=== PATIENT | male | born 1965 | race Caucasian/White ===

== ENCOUNTER 2023-06-19 11:25 | Outpatient (OUT) | payer OTHER, SELFPAY ==
[2023-06-19 12:02] LABS: Basophils Absolute Auto 0.1 10^3/uL (0.0-0.1); Basophils Percent Auto 0.5 % (0.2-2.0); Eosinophils Absolute Auto 0.2 10^3/uL (0.0-0.7); Eosinophils Percent Auto 1.8 % (0.9-7.0); Hematocrit 44.1 % (42.0-54.0); Hemoglobin 14.4 g/dL (14.0-18.0); Immature Granulocytes Abs Auto 0.05 10^3/uL (0.00-0.03); Immature Granulocytes Pct Auto 0.5 % (0.0-0.5); Lymphocytes Absolute Auto 2.3 10^3/uL (1.2-3.8); Lymphocytes Percent Auto 23.2 % (20.5-60.0); Mean Corpuscular HGB Conc 32.7 g/dL (29.9-35.2); Mean Corpuscular Hemoglobin 29.9 pg (25.9-34.0); Mean Corpuscular Volume 91.7 fL (80.0-94.0); Mean Platelet Volume 10.8 fL (9.5-13.5); Monocytes Absolute Auto 0.8 10^3/uL (0.3-0.8); Monocytes Percent Auto 7.8 % (1.7-12.0); Neutrophils Absolute Auto 6.5 10^3/uL (1.4-6.5); Neutrophils Percent Auto 66.2 % (43.0-75.0); Platelet Count 257 10^3/uL (150-450); Red Blood Count 4.81 10^6/uL (4.70-6.10); Red Cell Distribution Width 13.8 % (11.0-15.0); White Blood Count 9.8 10^3/uL (4.0-11.0)
[2023-06-19 12:10] LABS: Estimated Average Glucose 128 mg/dL; Glycohemoglobin A1C 6.1 % (4.5-6.2)
[2023-06-19 13:20] LABS: Anion Gap 10.3; BUN Creatinine Ratio 15.3; Bilirubin Total 0.5 mg/dL (0.2-1.0); Calcium 8.9 mg/dL (8.5-10.1); Carbon Dioxide 28.7 mmol/L (21.0-32.0); Chloride 103 mmol/L (98-107); Estimated GFR (African America >60 (>=60); Estimated GFR (Non-African Ame >60 (>=60); Glucose 120 mg/dL (74-106); Sodium 138 mmol/L (136-145)
[2023-06-19 13:21] LABS: Alanine Aminotransferase 35 U/L (16-63); Albumin Level 3.6 g/dL (3.4-5.0); Alkaline Phosphatase 86 U/L (46-116); Aspartate Amino Transferase 13 U/L (15-37); Cholesterol 173 mg/dL (<=200); Globulin 3.5 g/dL; Total Protein 7.1 g/dL (6.4-8.2); Triglycerides 65 mg/dL (<=150)
[2023-06-19 13:22] LABS: Chol HDL Ratio 3.7; Free T3 2.84 pg/mL (2.18-3.98); HDL Cholesterol 47 mg/dL (40-60); Thyroid Stimulating Hormone 0.353 uIU/mL (0.358-3.740)
[2023-06-19 13:37] LABS: Prostate Specific Antigen Scrn 3.49 ng/mL (<=4.00)
== END 2023-06-19 11:26 | disposition home or self-care (01) ==
LOC: LAB 11:29
PROVIDERS: PCP Family Medicine; Visit Provider Family Medicine
DX: Z00.00 Encounter for general adult medical examination without abnormal findings (principal); E78.5 Hyperlipidemia, unspecified; R73.09 Other abnormal glucose; Z12.5 Encounter for screening for malignant neoplasm of prostate; E55.9 Vitamin D deficiency, unspecified
CPT/HCPCS: 36415; 80053; 80061; 82306; 83036; 83525; 84436; 84443; 84481; 85025; G0103

== ENCOUNTER 2024-06-27 08:16 | Outpatient (OUT) | payer OTHER, SELFPAY ==
--- OUTSIDE RECORDS SUMMARY | 2024-06-27 08:18 | XMS_ITS | CCD ---
Author Organization [facility] Team Providers Care Manager Night Name Role Phone DR SARAY CALIX Attending Unavailable DR SARAY CALIX Admitting Unavailable DR SARAY CALIX Primary Care Unavailable DR SARAY CALIX Consulting Unavailable DR SARAY CALIX Admitting Unavailable DR SARAY CALIX Primary Care Unavailable DR SARAY CALIX Consulting Unavailable DR SARAY CALIX Attending Unavailable Problems Problem Classification Problem Date Documented Da te Episodic/Chronic Other screening for suspected conditions (not mental disorders or infectious disease) (1 source) Encounter for screening for malignant neoplasm of prostate; Translations: [ENC SCREEN MALIG NEOPLASM PROSTATE] Onset: 06-21-2022 Episodic Results Test Name Value Interpretation Reference Range Facil ity INSULINon 06-19-2022 Insulin 14.5 uIU/mL Normal 2.6-24.9 [facility] Comment on above: Performed By: #### I NSULIN #### [facility] [address] [place] [address] Dr. Lorri Thapa CBC AUTO DIFFon 06-18-2022 BASO # 0.1 103/ul Normal 0.0-0.1 [facility] Comment on above: Performed By: #### C BC #### [facility] [address] [place] [address] Dr. Lorri Thapa Basophils/100 WBC (Bld) 0.6 % Normal 0.2-2.0 [facility] Comment on above: Performed By: #### C BC #### [facility] [address] [place] [address] Dr. Lorri Thapa EO # 0.3 103/ul Normal 0.0-0.7 [facility] Comment on above: Performed By: #### C BC #### [facility] [address] [place] [address] Dr. Lorri Thapa Eosinophils/100 WBC (Bld) 4.2 % Normal 0.9-7.0 [facility] Comment on above: Performed By: #### C BC #### [facility] [address] [place] [address] Dr. Lorri Thapa Erythrocyte distribution width (RBC) [Ratio] 15.2 % Critically high 11.0-15.0 [facility] Comment on above: Performed By: #### C BC #### [facility] [address] [place] [address] Dr. Lorri Thapa Hematocrit (Bld) [Volume fraction] 42.3 % Normal 42.0-54.0 [facility] Comment on above: Performed By: #### C BC #### [facility] [address] [place] [address] Dr. Lorri Thapa Hemoglobin (Bld) [Mass/Vol] 14.1 g/dL Normal 14.0-18.0 [facility] Comment on above: Performed By: #### C BC #### [facility] [address] [place] [address] Dr. Lorri Thapa IG # 0.03 10e3/ul Normal 0.00-0.03 [facility] Comment on above: Performed By: #### C BC #### [facility] [address] [place] [address] Dr. Lorri Thapa IG % 0.4 % Normal 0.0-0.5 [facility] Comment on above: Performed By: #### C BC #### [facility] [address] [place] [address] Dr. Lorri Thapa LYMPH # 2.4 103/ul Normal 1.2-3.8 [facility] Comment on above: Performed By: #### C BC #### [facility] [address] [place] [address] Dr. Lorri Thapa Lymphocytes/100 WBC (Bld) 30.9 % Normal 20.5-60.0 [facility] Comment on above: Performed By: #### C BC #### [facility] [address] [place] [address] Dr. Lorri Thapa MANUAL DIFF REQ NO Normal [facility] Comment on above: Performed By: #### C BC #### [facility] [address] [address] [address] Lorri Thapa MCH (RBC) [Entitic mass] 28.6 pg Normal 25.9-34.0 [facility] Comment on above: Performed By: #### C BC #### [facility] [address] [address] [address] Lorri Thapa MCHC (RBC) [Mass/Vol] 33.3 g/dL Normal 29.9-35.2 [facility] Comment on above: Performed By: #### C BC #### [facility] [address] [place] [address] Dr. Lorri Thapa MCV (RBC) [Entitic vol] 85.8 fL Normal 80.0-94.0 [facility] Comment on above: Performed By: #### C BC #### [facility] [address] [place] [address] Dr. Lorri Thapa MONO # 0.8 103/ul Normal 0.3-0.8 [facility] Comment on above: Performed By: #### C BC #### [facility] [address] [place] [address] Dr. Lorri Thapa Monocytes/100 WBC (Bld) 9.6 % Normal 1.7-12.0 [facility] Comment on above: Performed By: #### C BC #### [facility] [address] [place] [address] Dr. Lorri Thapa NEUT # 4.3 103/ul Normal 1.4-6.5 [facility] Comment on above: Performed By: #### C BC #### [facility] [address] [place] [address] Dr. Lorri Thapa Neutrophils/100 WBC (Bld) 54.3 % Normal 43.0-75.0 [facility] Comment on above: Performed By: #### C BC #### [facility] [address] [place] [address] Dr. Lorri Thapa Platelet mean volume (Bld) [Entitic vol] 10.1 fL Normal 9.5-13.5 [facility] Comment on above: Performed By: #### C BC #### [facility] [address] [address] [address] Lorri Thapa PLT 236 103/ul Normal 150-450 [facility] Comment on above: Performed By: #### C BC #### [facility] [address] [address] [address] Lorri Thapa RBC 4.93 106/ul Normal 4.70-6.10 [facility] Comment on above: Performed By: #### C BC #### [facility] [address] [address] [address] Lorri Thapa WBC 7.9 103/ul Normal 4.0-11.0 [facility] Comment on above: Performed By: #### C BC #### [facility] [address] [place] [address] Dr. Lorri Thapa GLYCOHEMOGLOBIN A1Con 2021 ADA RECOMMENDATION SEE BELOW Normal [facility] Comment on above: Result Comment: ADA RECOMMENDED LIMIT 4.0 - 6.0 ADA THERAPEUTIC TARGET < 7.0 ACTION SUGGESTED > 7.0 Performed By: #### A 1C #### [facility] [address] [place] [address] Dr. Lorri Thapa Glucose [Mass/Vol] 131 mg/dL Normal [facility] Comment on above: Performed By: #### A 1C #### [facility] [address] [place] [address] Dr. Lorri Thapa HbA1c (Bld) [Mass fraction] 6.2 % Normal 4.5-6.2 [facility] Comment on above: Performed By: #### A 1C #### [facility] [address] [place] [address] Dr. Lorri Thapa LIPID PROFILEon 06-18-2022 CHOL-HDL RATIO NORM SEE BELOW Normal [facility] Comment on above: Result Comment: 3.3 - 4.4 LOW RISK 4.4 - 7.1 AVERAGE RISK 7.1 - 11.0 MODERATE RISK >11.0 HIGH RISK Performed By: #### C MP, LIPID #### [facility] [address] [address] [address] Lorri Thapa Cholesterol [Mass/Vol] 154 mg/dL Normal <=200 [facility] Comment on above: Performed By: #### C MP, LIPID #### [facility] [address] [address] [address] Lorri Thapa Cholesterol in HDL [Mass/Vol] 46 mg/dL Normal 40-60 [facility] Comment on above: Performed By: #### C MP, LIPID #### [facility] [address] [address] [address] Lorri Thapa Cholesterol in LDL [Mass/Vol] 93.0 mg/dL Normal [facility] Comment on above: Performed By: #### C MP, LIPID #### [facility] [address] [place] [address] Dr. Lorri Thapa Cholesterol.total/Cho lesterol in HDL [Mass ratio] 3.3 {ratio} Normal [facility] Comment on above: Performed By: #### C MP, LIPID #### [facility] [address] [address] [address] Lorri Thapa HDL NORMAL > or = 60 mg/dl - LOW CARDIOVASCULAR RISK <40 mg/dl - HIGH CARDIOVASCULAR RISK Normal [facility] Comment on above: Performed By: #### C MP, LIPID #### [facility] [address] [address] [address] Lorri Thapa LDL CALC NORMAL SEE BELOW Normal [facility] Comment on above: Result Comment: <100 mg/dl OPTIMAL 100 - 129 mg/dl NEAR OR ABOVE OPTIMAL 130 - 159 mg/dl BORDERLINE HIGH 160 - 189 mg/dl HIGH >190 mg/dl VERY HIGH Performed By: #### C MP, LIPID #### [facility] [address] [address] [address] Lorri Thapa Triglyceride [Mass/Vol] 75 mg/dL Normal <=150 [facility] Comment on above: Performed By: #### C MP, LIPID #### [facility] [address] [address] [address] Lorri Thapa VLDL CALC 15.0 mg/dL Normal [facility] Comment on above: Performed By: #### C MP, LIPID #### [facility] [address] [address] [address] Lorri Thapa PROF 14(COMP METB)on 022 Albumin [Mass/Vol] 3.5 g/dL Normal 3.4-5.0 [facility] Comment on above: Performed By: #### C MP, LIPID #### [facility] [address] [place] [address] Dr. Lorri Thapa Albumin/Globulin [Mass ratio] 1.1 {ratio} Normal [facility] Comment on above: Performed By: #### C MP, LIPID #### [facility] [address] [place] [address] Dr. Lorri Thapa ALP [Catalytic activity/Vol] 82 U/L Normal 46-116 [facility] Comment on above: Performed By: #### C MP, LIPID #### [facility] [address] [place] [address] Dr. Lorri Thapa ALT [Catalytic activity/Vol] 32 U/L Normal 16-63 [facility] Comment on above: Performed By: #### C MP, LIPID #### [facility] [address] [place] [address] Dr. Lorri Thapa Anion gap [Moles/Vol] 11.2 mmol/L Normal [facility] Comment on above: Performed By: #### C MP, LIPID #### [facility] [address] [place] [address] Dr. Lorri Thapa AST [Catalytic activity/Vol] 19 U/L Normal 15-37 [facility] Comment on above: Performed By: #### C MP, LIPID #### [facility] [address] [place] [address] Dr. Lorri Thapa Bilirubin [Mass/Vol] 0.6 mg/dL Normal 0.2-1.0 [facility] Comment on above: Performed By: #### C MP, LIPID #### [facility] [address] [place] [address] Dr. Lorri Thapa Calcium [Mass/Vol] 8.7 mg/dL Normal 8.5-10.1 [facility] Comment on above: Performed By: #### C MP, LIPID #### [facility] [address] [address] [address] Lorri Thapa Chloride [Moles/Vol] 104 mmol/L Normal 98-107 [facility] Comment on above: Performed By: #### C MP, LIPID #### [facility] [address] [address] [address] Lorri Thapa CO2 [Moles/Vol] 27.7 mmol/L Normal 21.0-32.0 [facility] Comment on above: Performed By: #### C MP, LIPID #### [facility] [address] [address] [address] Lorri Thapa Creatinine [Mass/Vol] 1.00 mg/dL Normal 0.70-1.30 [facility] Comment on above: Performed By: #### C MP, LIPID #### [facility] [address] [place] [address] Dr. Lorri Thapa EGFR-AF SLOVENIAN >60 Normal >=60 [facility] Comment on above: Performed By: #### C MP, LIPID #### [facility] [address] [place] [address] Dr. Lorri Thapa EGFR-NON AF SLOVENIAN >60 Normal >=60 [facility] Comment on above: Performed By: #### C MP, LIPID #### [facility] [address] [address] [address] Lorri Thapa Globulin (S) [Mass/Vol] 3.3 g/dL Normal [facility] Comment on above: Performed By: #### C MP, LIPID #### [facility] [address] [address] [address] Lorri Thapa Glucose [Mass/Vol] 94 mg/dL Normal 74-106 [facility] Comment on above: Performed By: #### C MP, LIPID #### [facility] [address] [address] [address] Lorri Thapa Potassium [Moles/Vol] 3.9 mmol/L Normal 3.5-5.1 [facility] Comment on above: Performed By: #### C MP, LIPID #### [facility] [address] [address] [address] Lorri Thapa Protein [Mass/Vol] 6.8 g/dL Normal 6.4-8.2 [facility] Comment on above: Performed By: #### C MP, LIPID #### [facility] [address] [address] [address] Lorri Thapa Sodium [Moles/Vol] 139 mmol/L Normal 136-145 [facility] Comment on above: Performed By: #### C MP, LIPID #### [facility] [address] [place] [address] Dr. Lorri Thapa Urea nitrogen [Mass/Vol] 16.0 mg/dL Normal 7.0-18.0 [facility] Comment on above: Performed By: #### C MP, LIPID #### [facility] [address] [place] [address] Dr. Lorri Thapa Urea nitrogen/Creatinine [Mass ratio] 16.0 mg/mg Normal [facility] Comment on above: Performed By: #### C MP, LIPID #### [facility] [address] [place] [address] Dr. Lorri Thapa CBC AUTO DIFFon 07-07-2021 BASO # 0.1 103/ul Normal 0.0-0.1 [facility] Comment on above: Performed By: #### C BC #### [facility] [address] [place] [address] Dr. Lorri Thapa Basophils/100 WBC (Bld) 0.6 % Normal 0.2-2.0 [facility] Comment on above: Performed By: #### C BC #### [facility] [address] [place] [address] Dr. Lorri Thapa EO # 0.4 103/ul Normal 0.0-0.7 [facility] Comment on above: Performed By: #### C BC #### [facility] [address] [place] [address] Dr. Lorri Thapa Eosinophils/100 WBC (Bld) 3.9 % Normal 0.9-7.0 [facility] Comment on above: Performed By: #### C BC #### [facility] [address] [place] [address] Dr. Lorri Thapa Erythrocyte distribution width (RBC) [Ratio] 14.1 % Normal 11.0-15.0 [facility] Comment on above: Performed By: #### C BC #### [facility] [address] [place] [address] Dr. Lorri Thapa Hematocrit (Bld) [Volume fraction] 43.6 % Normal 42.0-54.0 [facility] Comment on above: Performed By: #### C BC #### [facility] [address] [place] [address] Dr. Lorri Thapa Hemoglobin (Bld) [Mass/Vol] 13.8 g/dL Critically low 14.0-18.0 [facility] Comment on above: Performed By: #### C BC #### [facility] [address] [place] [address] Dr. Lorri Thapa IG # 0.03 10e3/ul Normal 0.00-0.03 [facility] Comment on above: Performed By: #### C BC #### [facility] [address] [place] [address] Dr. Lorri Thapa IG % 0.3 % Normal 0.0-0.5 [facility] Comment on above: Performed By: #### C BC #### [facility] [address] [place] [address] Dr. Lorri Thapa LYMPH # 2.4 103/ul Normal 1.2-3.8 [facility] Comment on above: Performed By: #### C BC #### [facility] [address] [place] [address] Dr. Lorri Thapa Lymphocytes/100 WBC (Bld) 27.4 % Normal 20.5-60.0 [facility] Comment on above: Performed By: #### C BC #### [facility] [address] [place] [address] Dr. Lorri Thapa MANUAL DIFF REQ NO Normal [facility] Comment on above: Performed By: #### C BC #### [facility] [address] [address] [address] Lorri Thapa MCH (RBC) [Entitic mass] 28.8 pg Normal 25.9-34.0 [facility] Comment on above: Performed By: #### C BC #### [facility] [address] [place] [address] Dr. Lorri Thapa MCHC (RBC) [Mass/Vol] 31.7 g/dL Normal 29.9-35.2 [facility] Comment on above: Performed By: #### C BC #### [facility] [address] [place] [address] Dr. Lorri Thapa MCV (RBC) [Entitic vol] 91.0 fL Normal 80.0-94.0 [facility] Comment on above: Performed By: #### C BC #### [facility] [address] [place] [address] Dr. Lorri Thapa MONO # 0.7 103/ul Normal 0.3-0.8 [facility] Comment on above: Performed By: #### C BC #### [facility] [address] [place] [address] Dr. Lorri Thapa Monocytes/100 WBC (Bld) 8.1 % Normal 1.7-12.0 [facility] Comment on above: Performed By: #### C BC #### [facility] [address] [place] [address] Dr. Lorri Thapa NEUT # 5.3 103/ul Normal 1.4-6.5 [facility] Comment on above: Performed By: #### C BC #### [facility] [address] [place] [address] Dr. Lorri Thapa Neutrophils/100 WBC (Bld) 59.7 % Normal 43.0-75.0 [facility] Comment on above: Performed By: #### C BC #### [facility] [address] [place] [address] Dr. Lorri Thapa Platelet mean volume (Bld) [Entitic vol] 10.4 fL Normal 9.5-13.5 [facility] Comment on above: Performed By: #### C BC #### [facility] [address] [address] [address] Lorri Thapa PLT 244 103/ul Normal 150-450 [facility] Comment on above: Performed By: #### C BC #### [facility] [address] [address] [address] Lorri Thapa RBC 4.79 106/ul Normal 4.70-6.10 [facility] Comment on above: Performed By: #### C BC #### [facility] [address] [address] [address] Lorri Thapa WBC 8.9 103/ul Normal 4.0-11.0 [facility] Comment on above: Performed By: #### C BC #### [facility] [address] [place] [address] Dr. Lorri Thapa GLYCOHEMOGLOBIN A1Con 2020 ADA RECOMMENDATION ADA THERAPEUTIC TARGET 6.0 - 7.0 ACTION SUGGESTED > 7.0 Normal [facility] Comment on above: Performed By: #### A 1C #### [facility] [address] [place] [address] Dr. Lorri Thapa Glucose [Mass/Vol] 126 mg/dL Normal [facility] Comment on above: Performed By: #### A 1C #### [facility] [address] [place] [address] Dr. Lorri Thapa HbA1c (Bld) [Mass fraction] 6.0 % Normal <=6.0 [facility] Comment on above: Performed By: #### A 1C #### [facility] [address] [place] [address] Dr. Lorri Thapa LIPID PROFILEon 07-07-2021 CHOL-HDL RATIO NORM SEE BELOW Normal [facility] Comment on above: Result Comment: 3.3 - 4.4 LOW RISK 4.4 - 7.1 AVERAGE RISK 7.1 - 11.0 MODERATE RISK >11.0 HIGH RISK Performed By: #### P SASC, VITAD #### [facility] [address] [place] [address] Dr. Lorri Thapa Cholesterol [Mass/Vol] 154 mg/dL Normal <=200 [facility] Comment on above: Performed By: #### P SASC, VITAD #### [facility] [address] [address] [address] Lorri Thapa Cholesterol in HDL [Mass/Vol] 50 mg/dL Normal [facility] Comment on above: Performed By: #### P SASC, VITAD #### [facility] [address] [address] [address] Lorri Thapa Cholesterol in LDL [Mass/Vol] 89.4 mg/dL Normal [facility] Comment on above: Performed By: #### P SASC, VITAD #### [facility] [address] [place] [address] Dr. Lorri Thapa Cholesterol.total/Cho lesterol in HDL [Mass ratio] 3.1 {ratio} Normal [facility] Comment on above: Performed By: #### P SASC, VITAD #### [facility] [address] [place] [address] Dr. Lorri Thapa HDL NORMAL > or = 60 mg/dl - LOW CARDIOVASCULAR RISK <40 mg/dl - HIGH CARDIOVASCULAR RISK Normal [facility] Comment on above: Performed By: #### P SASC, VITAD #### [facility] [address] [place] [address] Dr. Lorri Thapa LDL CALC NORMAL SEE BELOW Normal [facility] Comment on above: Result Comment: <100 mg/dl OPTIMAL 100 - 129 mg/dl NEAR OR ABOVE OPTIMAL 130 - 159 mg/dl BORDERLINE HIGH 160 - 189 mg/dl HIGH >190 mg/dl VERY HIGH Performed By: #### P SASC, VITAD #### [facility] [address] [place] [address] Dr. Lorri Thapa Triglyceride [Mass/Vol] 73 mg/dL Normal <=150 [facility] Comment on above: Performed By: #### P SASC, VITAD #### [facility] [address] [place] [address] Dr. Lorri Thapa VLDL CALC 14.6 mg/dL Normal [facility] Comment on above: Performed By: #### P SASC, VITAD #### [facility] [address] [place] [address] Dr. Lorri Thapa PROF 14(COMP METB)on 021 Albumin [Mass/Vol] 3.3 g/dL Critically low 3.5-5.0 [facility] Comment on above: Performed By: #### P SASC, VITAD #### [facility] [address] [address] [address] Lorri Thapa Albumin/Globulin [Mass ratio] 1.0 {ratio} Normal [facility] Comment on above: Performed By: #### P SASC, VITAD #### [facility] [address] [place] [address] Dr. Lorri Thapa ALP [Catalytic activity/Vol] 92 U/L Normal 38-126 [facility] Comment on above: Performed By: #### P SASC, VITAD #### [facility] [address] [place] [address] Dr. Lorri Thapa ALT [Catalytic activity/Vol] 26 U/L Normal 21-72 [facility] Comment on above: Performed By: #### P SASC, VITAD #### [facility] [address] [place] [address] Dr. Lorri Thapa Anion gap [Moles/Vol] 10.5 mmol/L Normal [facility] Comment on above: Performed By: #### P SASC, VITAD #### [facility] [address] [address] [address] Lorri Thapa AST [Catalytic activity/Vol] 15 U/L Critically low 17-59 [facility] Comment on above: Performed By: #### P SASC, VITAD #### [facility] [address] [place] [address] Dr. Lorri Thapa Bilirubin [Mass/Vol] 0.6 mg/dL Normal 0.2-1.3 [facility] Comment on above: Performed By: #### P SASC, VITAD #### [facility] [address] [place] [address] Dr. Lorri Thapa Calcium [Mass/Vol] 8.8 mg/dL Normal 8.4-10.2 [facility] Comment on above: Performed By: #### P SASC, VITAD #### [facility] [address] [place] [address] Dr. Lorri Thapa Chloride [Moles/Vol] 106 mmol/L Normal 98-107 [facility] Comment on above: Performed By: #### P SASC, VITAD #### [facility] [address] [place] [address] Dr. Lorri Thapa CO2 [Moles/Vol] 30.4 mmol/L Critically high 22.0-30.0 [facility] Comment on above: Performed By: #### P SASC, VITAD #### [facility] [address] [place] [address] Dr. Lorri Thapa Creatinine [Mass/Vol] 1.00 mg/dL Normal 0.66-1.25 [facility] Comment on above: Performed By: #### P SASC, VITAD #### [facility] [address] [place] [address] Dr. Lorri Thapa EGFR-AF SLOVENIAN >60 Normal >=60 [facility] Comment on above: Performed By: #### P SASC, VITAD #### [facility] [address] [place] [address] Dr. Lorri Thapa EGFR-NON AF SLOVENIAN >60 Normal >=60 [facility] Comment on above: Performed By: #### P SASC, VITAD #### [facility] [address] [place] [address] Dr. Lorri Thapa Globulin (S) [Mass/Vol] 3.4 g/dL Normal [facility] Comment on above: Performed By: #### P SASC, VITAD #### [facility] [address] [place] [address] Dr. Lorri Thapa Glucose [Mass/Vol] 103 mg/dL Normal 74-106 [facility] Comment on above: Performed By: #### P SASC, VITAD #### [facility] [address] [place] [address] Dr. Lorri Thapa Potassium [Moles/Vol] 4.9 mmol/L Normal 3.4-5.0 [facility] Comment on above: Performed By: #### P SASC, VITAD #### [facility] [address] [place] [address] Dr. Lorri Thapa Protein [Mass/Vol] 6.7 g/dL Normal 6.1-8.2 [facility] Comment on above: Performed By: #### P SASC, VITAD #### [facility] [address] [place] [address] Dr. Lorri Thapa Sodium [Moles/Vol] 142 mmol/L Normal 137-145 [facility] Comment on above: Performed By: #### P SASC, VITAD #### [facility] [address] [place] [address] Dr. Lorri Thapa Urea nitrogen [Mass/Vol] 20.0 mg/dL Normal 9.0-20.0 [facility] Comment on above: Performed By: #### P SASC, VITAD #### [facility] [address] [place] [address] Dr. Lorri Thapa Urea nitrogen/Creatinine [Mass ratio] 20.0 mg/mg Normal [facility] Comment on above: Performed By: #### P CARINAC, VITAD #### [facility] [address] [place] [address] Dr. Lorri Thapa VITAMIN D 25 OHon 07-07-2021 VIT D 25-OH 38.5 ng/mL Normal [facility] Comment on above: Performed By: #### P SASC, VITAD #### [facility] [address] [place] [address] Dr. Lorri Thapa VIT D RANGES SEE BELOW Normal [facility] Comment on above: Result Comment: <20 ng/mL Vit D deficient 20 - <30 ng/mL Vit D insufficient 30 - 100 ng/mL Vit D sufficient >100 ng/mL Potential Toxicity Performed By: #### P SASC, VITAD #### [facility] [address] [place] [address] Dr. Lorri Thapa Encounters Encounter Date Encounter Type Care Provider Facility Start: 06-21-2022 Encounter for genera l adult medical examination without abnormal findings DR SARAY CALIX [facility] Start: 06-18-2022 End: 06-19-[address] SARAY CALIX Facility:[facility] Start: 06-18-2022 End: 06-19-2022 Encounter for general adult medical examination without abnormal findings DR SARAY CALIX Facility:[facility] Start: 07-07-2021 End: 07-08-[address] SARAY CALIX Facility:[facility] Procedures Date Procedure Procedure Detail Performing Clinician Start: 06-18-[address] EMELIA CALIX Comment on above: Performed By: #### P SASC #### [facility] [address] [place], [place] [address] Dr. Lorri Thapa Start: 07-07-[address] EMELIA CALIX Comment on above: Performed By: #### P SASC, VITAD #### [facility] [address] [place], [place] [address] Dr. Lorri Thapa Payers Date Payer Category Payer Unknown [id number] 1965 Unknown [id number] 1957 Unknown [id number] Summary Purpose Family History No Family History Records Found Advance Directives No Advanced Directives Records Found Additional Source Comments (unrecognized sect ion and content) No Status Records Found INFORMATION SOURCE (unrecogn ized section and content) DATE CREATED AUTHOR 06/22/2022 [facility] FOR RECORDS PERTAINING TO PATIENTS WHO ARE OR HAVE BEEN ENROLLED IN A CHEMICAL DEPENDENCY/SUBSTANCEABUSE PROGRAM, SOME INFORMATION MAY BE OMITTED. This clinical summary was aggregated from multiple sources. Caution should be exercised in using it in the provision of clinical care. This summary normalizes information from multiple sources, and as a consequence, information in this document may materially change the coding, format and clinical context of patient data. In addition, data may be omitted in some cases. CLINICAL DECISIONS SHOULD BE BASED ON THE PRIMARY CLINICAL RECORDS. [facility] [employer] [facility]. provides no warranty or guarantee of the accuracy or completeness of information in this document.
[2024-06-27 09:36] LABS: Basophils Absolute Auto 0.1 10^3/uL (0.0-0.1); Basophils Percent Auto 0.4 % (0.2-2.0); Eosinophils Absolute Auto 0.3 10^3/uL (0.0-0.7); Eosinophils Percent Auto 2.5 % (0.9-7.0); Hematocrit 44.6 % (42.0-54.0); Hemoglobin 14.5 g/dL (14.0-18.0); Immature Granulocytes Abs Auto 0.04 10^3/uL (0.00-0.03); Immature Granulocytes Pct Auto 0.3 % (0.0-0.5); Lymphocytes Absolute Auto 2.2 10^3/uL (1.2-3.8); Lymphocytes Percent Auto 18.9 % (20.5-60.0); Mean Corpuscular HGB Conc 32.5 g/dL (29.9-35.2); Mean Corpuscular Hemoglobin 28.7 pg (25.9-34.0); Mean Corpuscular Volume 88.3 fL (80.0-94.0); Mean Platelet Volume 11.1 fL (9.5-13.5); Monocytes Absolute Auto 0.9 10^3/uL (0.3-0.8); Monocytes Percent Auto 7.2 % (1.7-12.0); Neutrophils Absolute Auto 8.4 10^3/uL (1.4-6.5); Neutrophils Percent Auto 70.7 % (43.0-75.0); Platelet Count 252 10^3/uL (150-450); Red Blood Count 5.05 10^6/uL (4.70-6.10); Red Cell Distribution Width 14.3 % (11.0-15.0); White Blood Count 11.8 10^3/uL (4.0-11.0)
[2024-06-27 09:53] LABS: Alanine Aminotransferase 27 U/L (16-63); Albumin Level 3.3 g/dL (3.4-5.0); Alkaline Phosphatase 94 U/L (46-116); Anion Gap 15.4; Aspartate Amino Transferase 11 U/L (15-37); BUN Creatinine Ratio 14.3; Bilirubin Total 0.6 mg/dL (0.2-1.0); Calcium 8.5 mg/dL (8.5-10.1); Carbon Dioxide 25.8 mmol/L (21.0-32.0); Chloride 107 mmol/L (98-107); Chol HDL Ratio 3.4; Cholesterol 168 mg/dL (<=200); Estimated GFR (African America >60 (>=60 mL/min/1.73m^2); Estimated GFR (Non-African Ame >60 (>=60 mL/min/1.73m^2); Free T3 2.55 pg/mL (2.18-3.98); Globulin 3.4 g/dL; Glucose 121 mg/dL (74-106); HDL Cholesterol 50 mg/dL (40-60); LDL Cholesterol Calculated 101.8 mg/dL; Potassium 4.2 mmol/L (3.5-5.1); Sodium 144 mmol/L (136-145); Thyroid Stimulating Hormone 0.474 uIU/mL (0.358-3.740); Total Protein 6.7 g/dL (6.4-8.2); Triglycerides 81 mg/dL (<=150); VLDL CHOLESTEROL 16.2 mg/dL
[2024-06-27 10:01] LABS: Prostate Specific Antigen Scrn 3.18 ng/mL (<=4.00)
[2024-06-27 10:04] LABS: Estimated Average Glucose 137 mg/dL; Glycohemoglobin A1C 6.4 % (4.5-6.2)
[2024-06-29 13:09] LABS: Insulin 32.6 uIU/mL (2.6-24.9)
== END 2024-06-27 08:17 | disposition home or self-care (01) ==
LOC: LAB 08:16
PROVIDERS: PCP Family Medicine; Visit Provider Family Medicine
DX: Z00.00 Encounter for general adult medical examination without abnormal findings (principal)
CPT/HCPCS: 36415; 80053; 80061; 82306; 83036; 83525; 84436; 84443; 84481; 85025; G0103

== ENCOUNTER 2025-07-12 09:33 | Outpatient (OUT) | payer OTHER, SELFPAY ==
--- OUTSIDE RECORDS SUMMARY | 2025-07-12 09:38 | XMS_ITS | Patient Health Record ---
Author Organization [facility] [place] Address [address] [place] [address] Care Team Providers Care Biologics Specialist Name Role Phone Alexander Kadeem Primary Care Provider Allergies No Known Allergies Reason For Referral Diagnosis 1 Skin tag (L91.8) Referral Organization [facility] Referring Provider First Name Kadeem Referring Provider Last Name Alexander Referring Provider Speciality Family Med yanni Referred Provider James Inman Referred Provider Specialty General Surg marisa Referral Priority Routine Immunizations Vaccine Route Administration Date Status Comme nts Flu, Flucelvax ([id number]) (47044) 6 mos +, single-dose syringe IM Intramuscular 06/19/2023 Administered Social History Tobacco Use: Social History Observation Description Date Details (start date - stop date) Former Smoker 08/19/1984 - 08/19/1987 Tobacco Use/Smoking Question Answer Notes Patient is a former smoker When did you start smoking?08/19/1984When did you stop smoking?08/19/1987How long has it been since you last smoked?> 10 yearsAdditional Findings: Tobacco UserLight cigarette smoker ((1-9 cigs/day)Alcohol Screen (Audit-C) Question Answer Notes Did you have a drink containing alcohol in the p ast year? Yes How often did you have 6 or more drinks on one occasion in the past year?Never (0 point)How many drinks did you have on a typical day when you were drinking in the past year?1 or 2 drinks (0 point)How often did you have a drink containing alcohol in the past year?Less than monthly (1 point)Yjmesw4Qrunpuheppknnh NegativeAUDIT-C (Standard) Question Answer Notes Did you have a drink containing alcohol in the p ast year? No Cyhcyf1AxuxydnqkjxtaeHxapeyqg Problems Problem Type SNOMED Code ICD Code Onset Dates Problem Status W/U Status Risk Notes Problem Well adult (281015916) Well adult (Z00.00 ) ActiveconfirmedProblemSkin tag (43923046)Skin tag (L91.8)ActiveconfirmedProblem Overweight (075110485)Over weight (E66.3)Activeconfirmed Vital Signs Blood pressure diastolic 82 mm Hg 07/12/2025 Dginaq92 in07/12/2025lood pressure pmkybwxn215 mm Hg07/12/20253958Pdrbxa425.8 lbs 07/12/2025BMI37.49 kg/m207/12/2025 Encounters Encounter Location Date Provider Diagnosis [facility] [address] [place] [address] 07/12/2025 Kadeem Hoy Skin tag L91.8 and Well adult Z00.00 Assessments Encounter Date Diagnosis (ICD Code) Assessment Notes Treatment Notes Treatment Clinical Notes Section Notes 07/12/2025 Skin tag (ICD-10 - L91.8) 07/12/2025Well adult (ICD-10 - Z00.00) Plan Of Treatment Pending Test Test Name Order Date CMP (COMPLETE METABOLIC PANEL) 3 CMP (COMPLETE METABOLIC PANEL) 4 HEMOGLOBIN A1C (GLYCO) 06/19/2023 HEMOGLOBIN A1C (GLYCO) 06/26/2024 HEMOGLOBIN A1C (GLYCO) 07/12/2025 INSULIN, TOTAL 07/12/2025 INSULIN, TOTAL 06/19/2023 INSULIN, TOTAL 06/26/2024 LIPID PANEL (CHOL/TRIG/HDL/LDL) 06/26/20 24 LIPID PANEL (CHOL/TRIG/HDL/LDL) 06/19/20 23 LIPID PANEL (CHOL/TRIG/HDL/LDL) 07/12/20 25 CBC WITH DIFF 06/19/2023 CBC WITH DIFF 06/26/2024 PSA, PROSTATE-SPECIFIC ANTIGEN 3 URIC ACID 07/12/2025 VITAMIN D, 25 LEVEL (TOTAL) 06/26/2024 Basic Metabolic Panel (8) 06/27/2024 PSA, TOTAL 06/26/2024 GLYCOHEMOGLOBIN A1C 06/27/2024 VITAMIN D 25 OH 07/12/2025 THYROID PANEL (T4/TSH/FREE T3) 5 THYROID PANEL (T4/TSH/FREE T3) 3 THYROID PANEL (T4/TSH/FREE T3) 4 PSA, SCREENING 07/12/2025 CMP (COMP MET JEFFRIES) w/eGFR CKD-EPI 2024 CBC WITH DIFF 07/12/2025 Insurance Providers Payer Name Payer Address Payer Phone Subscriber Number Group Number Insured Name Patient Relationship to Insured Coverage Start Date Coverage End Date [employer] [address] [address] [place] [address] [id number] Moe Lundbergelf - patient is the insured Medical (General) History Medical History History ICD Code Over weight E66.3 Well adult Z00.00 COVID-19 U07.1 Surgical History Surgery Date(Month/Year) Right Knee Repair/Scope Right Ankle surgeryhernia repair- infant
--- OUTSIDE RECORDS SUMMARY | 2025-07-12 09:47 | XMS_ITS | CCD ---
[facility] Organization [facility] Team Providers Care Allergist/Md Name Role Phone DR SARAY CALIX Attending Unavailable FIFI, DR SO Admitting Unavailable FIFI, DR SO Primary Care Unavailable DR SARAY CALIX Consulting Unavailable DR SARAY CALIX Admitting Unavailable FIFI, DR SO Primary Care Unavailable DR SARAY CALIX Consulting Unavailable DR SARAY CALIX Attending Unavailable Problems Problem ClassificationProblemDateDocumented DateEpisodic/ChronicOther screening for suspected conditions (not mental disorders or infectious disease) (1 source)Encounter for screening for malignant neoplasm of prostate; Translations: [ENC SCREEN MALIG NEOPLASM PROSTATE]Onset: [id number] Results Test NameValueInterpretationReference RangeFacilityINSULINon 12-72-6006Isovzuf 14.5 uIU/mLNormal2.6-24.9The [facility] HospitalComment on above:Performed By: #### INSULIN #### [facility] [address] [place] [address] Dr. Lorri Villavicencio AUTO DIFFon [id number] #0.1 103/ulNormal0.0-0.1The [facility] HospitalComment on above:Performed By: #### CBC #### [facility] [address] [address] [address] Lorri Ruizphils/100 WBC (Bld)0.6 %Normal0.2-2.0[facility] Comment on above:Performed By: #### CBC #### [facility] [address] [place] [address] Dr. Lorri Wong #0.3 103/ulNormal0.0-0.7The [facility] HospitalComment on above: Performed By: #### CBC #### [facility] [address] [place] [address] Dr. Lorri Chaconosinophils/100 WBC (Bld)4.2 %Normal0.9-7.0[facility] Comment on above:Performed By: #### CBC #### [facility] [address] [place] [address] Dr. Lorri Chaconrythrocyte distribution width (RBC) [Ratio]15.2 %Critically high 11.0-15.0The [facility] HospitalComment on above:Performed By: #### CBC #### [facility] [address] [place] [address] Dr. Lorri ThapaHematocrit (Bld) [Volume fraction]42.3 %Kpbkma98.0-54.0The [facility] HospitalComment on above:Performed By: #### CBC #### [facility] [address] [place] [address] Dr. Lorri ThapaHemoglobin (Bld) [Mass/Vol]14.1 g/pZEjrmfg41.0-18.0The [facility] HospitalComment on above:Performed By: #### CBC #### [facility] [address] [place] [address] Dr. Lorri Goodrich #0.03 10e3/ulNormal0.00-0.03The [facility] HospitalComment on above:Performed By: #### CBC #### [facility] [address] [place] [address] Dr. Lorri ThapaIG %0.4 %Normal0.0-0.5The [facility] HospitalComment on above: Performed By: #### CBC #### [facility] [address] [place] [address] Dr. Lorri BaeMPH #2.4 103/ulNormal1.2-3.8The [facility] HospitalComment on above:Performed By: #### CBC #### [facility] [address] [place] [address] Dr. Lorri Baemphocytes/100 WBC (Bld)30.9 %Miqypg77.5-60.0The [facility] HospitalComment on above:Performed By: #### CBC #### [facility] [address] [place] [address] Dr. Lorri Schwartz DIFF REQNONormalThe [facility] HospitalComment on above: Performed By: #### CBC #### [facility] [address] [place] [address] Dr. Lorri Gibbons (RBC) [Entitic mass]28.6 ffYfecbs61.9-34.0The [facility] HospitalComment on above:Performed By: #### CBC #### [facility] [address] [place] [address] Dr. Lorri Gibbons (RBC) [Mass/Vol]33.3 g/rHFznbkf52.9-35.2The [facility] HospitalComment on above:Performed By: #### CBC #### [facility] [address] [place] [address] Dr. Lorri Gibbons (RBC) [Entitic vol]85.8 wDEzxsib94.0-94.0The [facility] HospitalComment on above:Performed By: #### CBC #### [facility] [address] [place] [address] Dr. Lorri Irwin #0.8 103/ulNormal0.3-0.8The [facility] HospitalComment on above:Performed By: #### CBC #### [facility] [address] [place] [address] Dr. Lorri Wrightocytes/100 WBC (Bld)9.6 %Normal1.7-12.0[facility] Comment on above:Performed By: #### CBC #### [facility] [address] [place] [address] Dr. Lorri Hewitt #4.3 103/ulNormal1.4-6.5The [facility] Hospitalment on above:Performed By: #### CBC #### [facility] [address] [place] [address] Dr. Lorri Petitutrophils/100 WBC (Bld)54.3 %Irubxm28.0-75.0The [facility] HospitalComment on above:Performed By: #### CBC #### [facility] [address] [address] [address] Lorri ThapaPlatelet mean volume (Bld) [Entitic vol]10.1 fLNormal9.5-13.5The [facility] HospitalComment on above:Performed By: #### CBC #### [facility] [address] [address] [address] Lorri ThapaPLT236 103/qfAxoebc406-698Frf [facility] HospitalComment on above: Performed By: #### CBC #### [facility] [address] [place] [address] Dr. Lorri ThapaRBC4.93 106/ulNormal4.70-6.10The [facility] HospitalComment on above:Performed By: #### CBC #### [facility] [address] [place] [address] Dr. Lorri ThapaWBC7.9 103/ulNormal4.0-11.0The [facility] HospitalComment on above: Performed By: #### CBC #### [facility] [address] [place] [address] Dr. Lorri ThapaGLYCOHEMOGLOBIN A1Con 85-28-8776MWU RECOMMENDATIONSEE BELOWNormal [facility] HospitalCommackinac stra[facility] on above:Result Comment: ADA RECOMMENDED LIMIT 4.0 - 6.0 ADA THERAPEUTIC TARGET < 7.0 ACTION SUGGESTED > 7.0Performed By: #### A1C #### [facility] [address] [place] [address] Dr. Lorri ThapaGlucose [Mass/Vol]131 mg/dLNormalThOur Lady of Mercy HospitalCommackinac straits hospital on above:Performed By: #### A1C #### [facility] [address] [place] [address] Dr. Lorri ThapaHbA1c (Bld) [Mass fraction]6.2 %Normal4.5-6.2The [facility] on above:Performed By: #### A1C #### [facility] [address] [place] [address] Dr. Lorri ThapaLIPID PROFILEon [id number]-HDL RATIO NORMSSumma HealthComment on above:Result Comment: 3.3 - 4.4 LOW RISK 4.4 - 7.1 AVERAGE RISK 7.1 - 11.0 MODERATE RISK >11.0 HIGH RISKPerformed By: #### CMP, LIPID #### [facility] [address] [address] [address] Lorri ThapaCholesterol [Mass/Vol]154 mg/dLNormal<=200[facility] Comment on above:Performed By: #### CMP, LIPID #### [facility] [address] [address] [address] Lorri ThapaCholesterol in HDL [Mass/Vol]46 mg/dEZoovac17-26GkuDelaware County HospitalComment on above:Performed By: #### CMP, LIPID #### [facility] [address] [address] [address] Lorri ThapaCholesterol in LDL [Mass/Vol]93.0 mg/dLChildren's Hospital of ColumbusComment on above:Performed By: #### CMP, LIPID #### [facility] [address] [place] [address] Dr. Lorri Narvaezestermonica.total/Cholesterol in HDL [Mass ratio]3.3 {ratio} NormalDelaware County HospitalComment on above:Performed By: #### CMP, LIPID #### [facility] [address] [address] [address] Lorri Joseph NORMAL> or = 60 mg/dl - LOW CARDIOVASCULAR RISK <40 mg/dl - HIGH CARDIOVASCULAR RISKChildren's Hospital of ColumbusComment on above:Performed By: #### CMP, LIPID #### [facility] [address] [address] [address] Lorri ThapaLDL CALC NORMALSEE [facility]rbana HospitalComment on above:Result Comment: <100 mg/dl OPTIMAL 100 - 129 mg/dl NEAR OR ABOVE OPTIMAL 130 - 159 mg/dl BORDERLINE HIGH 160 - 189 mg/dl HIGH >190 mg/dl VERY HIGH Performed By: #### CMP, LIPID #### [facility] [address] [address] [address] Lorri ThapaTriglyceride [Mass/Vol]75 mg/dLNormal<=150The [facility] Comment on above:Performed By: #### CMP, LIPID #### [facility] [address] [address] [address] Lorri ThapaVLDL CALC15.0 mg/dLNormalThe [facility] HospitalComment on above: Performed By: #### CMP, LIPID #### [facility] [address] [address] [address] Lorri ThapaPROF 14(COMP METB)on 79-45-9241Dwrxwpm [Mass/Vol]3.5 g/dLNormal 3.4-5.0The [facility] HospitalComment on above:Performed By: #### CMP, LIPID #### [facility] [address] [place] [address] Dr. Lorri ThapaAlbumin/Globulin [Mass ratio]1.1 {ratio}NormalThe [facility] HospitalComment on above:Performed By: #### CMP, LIPID #### [facility] [address] [address] [address] Lorri Dumont [Catalytic activity/Vol]82 U/VYndawo41-137Bzd [facility] HospitalComment on above:Performed By: #### CMP, LIPID #### [facility] [address] [address] [address] Lorri Sharma [Catalytic activity/Vol]32 U/YFpghpe80-00Zfv [facility] HospitalComment on above:Performed By: #### CMP, LIPID #### [facility] [address] [address] [address] Lorri Amaro gap [Moles/Vol]11.2 mmol/LNormalThe [facility] Comment on above:Performed By: #### CMP, LIPID #### [facility] [address] [address] [address] Lorri ThapaAST [Catalytic activity/Vol]19 U/VHzxbjg73-44Xvd [facility] HospitalComment on above:Performed By: #### CMP, LIPID #### [facility] [address] [address] [address] Lorri ThapaBilirubin [Mass/Vol]0.6 mg/dLNormal0.2-1.0[facility] Comment on above:Performed By: #### CMP, LIPID #### [facility] [address] [address] [address] Lorri ThapaCalcium [Mass/Vol]8.7 mg/dLNormal8.5-10.1The [facility] Comment on above:Performed By: #### CMP, LIPID #### [facility] [address] [address] [address] Lorri ThapaChloride [Moles/Vol]104 mmol/QDxplzm86-633Qsx [facility] Comment on above:Performed By: #### CMP, LIPID #### [facility] [address] [place] [address] Dr. Lorri ThapaCO2 [Moles/Vol]27.7 mmol/WCxyhat72.0-32.0[facility] Comment on above:Performed By: #### CMP, LIPID #### [facility] [address] [address] [address] Lorri ThapaCreatinine [Mass/Vol]1.00 mg/dLNormal0.70-1.30The [facility] HospitalComment on above:Performed By: #### CMP, LIPID #### [facility] [address] [place] [address] Dr. Lorri ChaconGFR-AF SURINAMESE>60Normal>=60The [facility] HospitalComment on above:Performed By: #### CMP, LIPID #### [facility] [address] [place] [address] Dr. Lorri ChaconGFR-NON AF SURINAMESE>60Normal>=60The [facility] HospitalComment on above:Performed By: #### CMP, LIPID #### [facility] [address] [place] [address] Dr. Lorri ThapaGlobulin (S) [Mass/Vol]3.3 g/dLNormalThe [facility] HospitalComment on above:Performed By: #### CMP, LIPID #### [facility] [address] [address] [address] Lorri ThapaGlucose [Mass/Vol]94 mg/tZJpuylu00-990Ymp [facility] Comment on above:Performed By: #### CMP, LIPID #### [facility] [address] [address] [address] Lorri ThapaPotassium [Moles/Vol]3.9 mmol/LNormal3.5-5.1The [facility] Comment on above:Performed By: #### CMP, LIPID #### [facility] [address] [address] [address] Lorri ThapaProtein [Mass/Vol]6.8 g/dLNormal6.4-8.2The [facility] Comment on above:Performed By: #### CMP, LIPID #### [facility] [address] [place] [address] Dr. Lorri ThapaSodium [Moles/Vol]139 mmol/INdfklo059-657Ugo [facility] Comment on above:Performed By: #### CMP, LIPID #### [facility] [address] [place] [address] Dr. Lorri ThapaUrea nitrogen [Mass/Vol]16.0 mg/dLNormal7.0-18.0The [facility] HospitalComment on above:Performed By: #### CMP, LIPID #### [facility] [address] [place] [address] Dr. Lorri ThapaUrea nitrogen/Creatinine [Mass ratio]16.0 mg/mgNormalThe [facility] HospitalComment on above:Performed By: #### CMP, LIPID #### [facility] [address] [place] [address] Dr. Lorri Villavicencio AUTO DIFFon [id number] #0.1 103/ulNormal0.0-0.1The [facility] HospitalComment on above:Performed By: #### CBC #### [facility] [address] [place] [address] Dr. Lorri ThapaBasophils/100 WBC (Bld)0.6 %Normal0.2-2.0[facility] Comment on above:Performed By: #### CBC #### [facility] [address] [place] [address] Dr. Lorri Wong #0.4 103/ulNormal0.0-0.7The [facility] HospitalComment on above: Performed By: #### CBC #### [facility] [address] [place] [address] Dr. Lorri Chaconosinophils/100 WBC (Bld)3.9 %Normal0.9-7.0[facility] Comment on above:Performed By: #### CBC #### [facility] [address] [place] [address] Dr. Lorri Chaconrythrocyte distribution width (RBC) [Ratio]14.1 %Xgmhta40.0-15.0 The [facility] HospitalComment on above:Performed By: #### CBC #### [facility] [address] [place] [address] Dr. Lorri ThapaHematocrit (Bld) [Volume fraction]43.6 %Xcrssk09.0-54.0The [facility] HospitalComment on above:Performed By: #### CBC #### [facility] [address] [place] [address] Dr. Lorri ThapaHemoglobin (Bld) [Mass/Vol]13.8 g/dLCritically low14.0-18.0The [facility] HospitalComment on above:Performed By: #### CBC #### [facility] [address] [place] [address] Dr. Lorri Goodrich #0.03 10e3/ulNormal0.00-0.03The [facility] HospitalComment on above:Performed By: #### CBC #### [facility] [address] [place] [address] Dr. Lorri Goodrich %0.3 %Normal0.0-0.5The [facility] HospitalComment on above: Performed By: #### CBC #### [facility] [address] [place] [address] Dr. Yilan ChangLYMPH #2.4 103/ulNormal1.2-3.8The [facility] HospitalComment on above:Performed By: #### CBC #### [facility] [address] [place] [address] Dr. Lorri Baemphocytes/100 WBC (Bld)27.4 %Mlbskv88.5-60.0The [facility] HospitalComment on above:Performed By: #### CBC #### [facility] [address] [place] [address] Dr. Lorri Schwartz DIFF REQNONormalThe [facility] HospitalComment on above: Performed By: #### CBC #### [facility] [address] [place] [address] Dr. Lorri Gibbons (RBC) [Entitic mass]28.8 kpYdmbnq97.9-34.0The [facility] HospitalComment on above:Performed By: #### CBC #### [facility] [address] [place] [address] Dr. Lorri Gibbons (RBC) [Mass/Vol]31.7 g/aKVqsadv87.9-35.2The [facility] HospitalComment on above:Performed By: #### CBC #### [facility] [address] [place] [address] Dr. Lorri Mackay (RBC) [Entitic vol]91.0 oTWquucq25.0-94.0The [facility] HospitalComment on above:Performed By: #### CBC #### [facility] [address] [place] [address] Dr. Lorri Irwin #0.7 103/ulNormal0.3-0.8The [facility] HospitalComment on above:Performed By: #### CBC #### [facility] [address] [place] [address] Dr. Lorri Wrightocytes/100 WBC (Bld)8.1 %Normal1.7-12.0[facility] Comment on above:Performed By: #### CBC #### [facility] [address] [place] [address] Dr. Lorri Hewitt #5.3 103/ulNormal1.4-6.5The [facility] HospitalComment on above:Performed By: #### CBC #### [facility] [address] [place] [address] Dr. Lorri Petitutrophils/100 WBC (Bld)59.7 %Kvizqn22.0-75.0The [facility] HospitalComment on above:Performed By: #### CBC #### [facility] [address] [place] [address] Dr. Lorri ThapaPlatelet mean volume (Bld) [Entitic vol]10.4 fLNormal9.5-13.5The [facility] HospitalComment on above:Performed By: #### CBC #### [facility] [address] [place] [address] Dr. Lorri ThapaPLT244 103/aaBcuify595-342Dwa [facility] HospitalComment on above: Performed By: #### CBC #### [facility] [address] [place] [address] Dr. Lorri ThapaRBC4.79 106/ulNormal4.70-6.10The [facility] HospitalComment on above:Performed By: #### CBC #### [facility] [address] [place] [address] Dr. Lorri ThapaWBC8.9 103/ulNormal4.0-11.0[facility]Commack[facility]ac [facility] on above: Performed By: #### CBC #### [facility] [address] [place] [address] Dr. Lorri ThapaGLYCOHEMOGLOBIN A1Con [id number] RECOMMENDATIONADA THERAPEUTIC TARGET 6.0 - 7.0 ACTION SUGGESTED > 7.0NoCleveland Clinic Akron General Lodi HospitalComment on above:Performed By: #### A1C #### [facility] [address] [place] [address] Dr. Lorri ThapaGlucose [Mass/Vol]126 mg/dLNoCleveland Clinic Akron General Lodi HospitalComment on above:Performed By: #### A1C #### [facility] [address] [place] [address] Dr. Lorri ThapaHbA1c (Bld) [Mass fraction]6.0 %Normal<=6.0[facility] Comment on above:Performed By: #### A1C #### [facility] [address] [place] [address] Dr. Lorri ThapaLIPID PROFILEon [id number]-HDL RATIO NORMSEE [facility] HospitalComment on above:Result Comment: 3.3 - 4.4 LOW RISK 4.4 - 7.1 AVERAGE RISK 7.1 - 11.0 MODERATE RISK >11.0 HIGH RISKPerformed By: #### PSASC, VITAD #### [facility] [address] [place] [address] Dr. Lorri ThapaCholesterol [Mass/Vol]154 mg/dLNormal<=200[facility] Comment on above:Performed By: #### PSASC, VITAD #### [facility] [address] [place] [address] Dr. Lorri ThapaCholesterol in HDL [Mass/Vol]50 mg/dLChildren's Hospital of [facility] Comment on above:Performed By: #### PSASC, VITAD #### [facility] [address] [place] [address] Dr. Lorri Narvaezesterol in LDL [Mass/Vol]89.4 mg/dLChildren's Hospital of ColumbusComment on above:Performed By: #### PSASC, VITAD #### [facility] [address] [place] [address] Dr. Lorri Narvaezestermonica.total/Cholesterol in HDL [Mass ratio]3.1 {ratio} NormalDelaware County HospitalComment on above:Performed By: #### PSASC, VITAD #### [facility] [address] [place] [address] Dr. Lorri Joseph NORMAL> or = 60 mg/dl - LOW CARDIOVASCULAR RISK <40 mg/dl - HIGH CARDIOVASCULAR RISKChildren's Hospital of ColumbusComment on above:Performed By: #### PSASC, VITAD #### [facility] [address] [place] [address] Dr. Lorri Li CALC NORMALSEE BELOWNoCleveland Clinic Akron General Lodi HospitalComment on above:Result Comment: <100 mg/dl OPTIMAL 100 - 129 mg/dl NEAR OR ABOVE OPTIMAL 130 - 159 mg/dl BORDERLINE HIGH 160 - 189 mg/dl HIGH >190 mg/dl VERY HIGH Performed By: #### PSASC, VITAD #### [facility] [address] [address] [address] Lorri ThapaTriglyceride [Mass/Vol]73 mg/dLNormal<=150The [facility] Comment on above:Performed By: #### PSASC, VITAD #### [facility] [address] [place] [address] Dr. Lorri ThapaVLDL CALC14.6 mg/dLNoCleveland Clinic Ak[facility] General Lodi HospitalComment on above: Performed By: #### PSAJAZMYN, VITAD #### [facility] [address] [place] [address] Dr. Lorri ThapaPRODeepali 14(COMP METB)on [id number] [Mass/Vol]3.3 g/dL Critically low3.5-5.0The [facility] HospitalComment on above:Performed By: #### ROSEMARY, VITAD #### [facility] [address] [place] [address] Dr. Lorri ThapaAlbumin/Globulin [Mass ratio]1.0 {ratio}NormalDelaware County HospitalComment on above:Performed By: #### PSAJAZMYN, VITAD #### [facility] [address] [place] [address] Dr. Lorri Dumont [Catalytic activity/Vol]92 U/QGxfcuy08-249Mrg [facility] HospitalComment on above:Performed By: #### PSASC, VITAD #### [facility] [address] [place] [address] Dr. Lorri Sharma [Catalytic activity/Vol]26 U/HEokpyf08-96Nen [facility] HospitalComment on above:Performed By: #### PSASC, VITAD #### [facility] [address] [place] [address] Dr. Yilan ChangAnion gap [Moles/Vol]10.5 mmol/LNormalThe [facility] Comment on above:Performed By: #### PSAJAZMYN, VITAD #### [facility] [address] [place] [address] Dr. Lorri ThapaAST [Catalytic activity/Vol]15 U/LCritically upw50-17Qtm [facility] HospitalComment on above:Performed By: #### PSAJAZMYN, VITAD #### [facility] [address] [place] [address] Dr. Lorri ThapaBilirubin [Mass/Vol]0.6 mg/dLNormal0.2-1.3The [facility] Comment on above:Performed By: #### PSAJAZMYN, VITAD #### [facility] [address] [place] [address] Dr. Lorri ThapaCalcium [Mass/Vol]8.8 mg/dLNormal8.4-10.2[facility] Comment on above:Performed By: #### PSAJAZMYN, VITAD #### [facility] [address] [place] [address] Dr. Lorri ThapaChloride [Moles/Vol]106 mmol/RZudxvs80-756Uxb [facility] Comment on above:Performed By: #### PSAJAZMYN, VITAD #### [facility] [address] [place] [address] Dr. Lorri ThapaCO2 [Moles/Vol]30.4 mmol/LCritically high22.0-30.0The [facility] HospitalComment on above:Performed By: #### PSASC, VITAD #### [facility] [address] [place] [address] Dr. Lorri ThapaCreatinine [Mass/Vol]1.00 mg/dLNormal0.66-1.25The [facility] HospitalComment on above:Performed By: #### PSASC, VITAD #### [facility] [address] [place] [address] Dr. Blackmon ChangEGFR-AF SURINAMESE>60Normal>=60The [facility] HospitalComment on above:Performed By: #### PSASC, VITAD #### [facility] [address] [address] [address] Lorri ChaconGFR-NON AF SURINAMESE>60Normal>=60The [facility] HospitalComment on above:Performed By: #### PSASC, VITAD #### [facility] [address] [address] [address] Lorri ThapaGlobulin (S) [Mass/Vol]3.4 g/dLNormAshtabula General HospitalComment on above:Performed By: #### PSASC, VITAD #### [facility] [address] [address] [address] Lorri ThapaGlucose [Mass/Vol]103 mg/rATqzgck81-689Oji [facility] Comment on above:Performed By: #### PSASC, VITAD #### [facility] [address] [place] [address] Dr. Lorri ThapaPotassium [Moles/Vol]4.9 mmol/LNormal3.4-5.0The [facility] Comment on above:Performed By: #### PSAJAZMYN, VITAD #### [facility] [address] [address] [address] Lorri ThapaProtein [Mass/Vol]6.7 g/dLNormal6.1-8.2[facility] Comment on above:Performed By: #### PSASC, VITAD #### [facility] [address] [place] [address] Dr. Lorri ThapaSodium [Moles/Vol]142 mmol/WJenctm792-488Vac [facility] Comment on above:Performed By: #### PSASC, VITAD #### [facility] [address] [place] [address] Dr. Lorri ThapaUrea nitrogen [Mass/Vol]20.0 mg/dLNormal9.0-20.0The [facility] HospitalComment on above:Performed By: #### PSASC, VITAD #### [facility] [address] [place] [address] Dr. Lorri ThapaUrea nitrogen/Creatinine [Mass ratio]20.0 mg/mgNormOhioHealth Shelby Hospitale [facility] HospitalComment on above:Performed By: #### PSASC, VITAD #### [facility] [address] [address] [address] Lorri ThapaVITAMIN D 25 OHon 70-80-7421IGU D 25-OH38.5 ng/mLNRegency Hospital Cleveland WestComment on above:Performed By: #### PSASC, VITAD #### [facility] [address] [place] [address] Dr. Lorri Cruz D RANGESSEE [facility] HospitalComment on above: Result Comment: <20 ng/mL Vit D deficient 20 - <30 ng/mL Vit D insufficient 30 - 100 ng/mL Vit D sufficient >100 ng/mL Potential ToxicityPerformed By: #### PSASC, VITAD #### [facility] [address] [place] [address] Dr. Lorri Thapa Encounters Encounter DateEncounter TypeCare ProviderFacilityStart: [id number] for general adult medical examination without abnormal findingsDR SARAY HOYThDiley Ridge Medical Center HospitalStart: 06-18-2022 End: [id number] SARAY HOYFacility:C8Xqfgn: 06-18-2022 End: [id number] for general adult medical examination without abnormal findingsDR SARAY HOYFacility:H3Lingd: 07-07-2021 End: [id number] SARAY HOYFacility:H1 Procedures DateProcedureProcedure DetailPerforming ClinicianStart: [id number] screening DR SARAY Knowles on above:Performed By: #### PSASC #### [facility] [address] [place] [address] Dr. Lorri ThapaStart: [id number] screeningDR SARAY HOYComment on above: Performed By: #### PSASC, VITAD #### [facility] [address] [place] [address] Dr. Lorri Thapa [facility] DatePayer CategoryR[facility] [id number] Summary Purpose Family History No Family History Records Found Advance Directives No Advanced Directives Records Found Additional Source Comments (unrecognized sect ion and content) No Status Records Found INFORMATION SOURCE (unrecogn ized section and content) DATE CREATED AUTHOR 06/22/2022 [facility] FOR RECORDS PERTAINING TO PATIENTS WHO ARE [...] BE BASED ON THE PRIMARY CLINICAL RECORDS. [facility] [employer] [facility]. provides no warranty or guarantee of the accuracy or completeness of information in this document.
[2025-07-12 10:12] LABS: Hematocrit 43.4 % (42.0-54.0); Hemoglobin 14.1 g/dL (14.0-18.0); Immature Granulocytes Abs Auto 0.02 10^3/uL (0.00-0.03); Immature Granulocytes Pct Auto 0.3 % (0.0-0.5); Lymphocytes Absolute Auto 2.0 10^3/uL (1.2-3.8); Mean Corpuscular HGB Conc 32.5 g/dL (29.9-35.2); Mean Corpuscular Hemoglobin 29.1 pg (25.9-34.0); Mean Corpuscular Volume 89.7 fL (80.0-94.0); Platelet Count 247 10^3/uL (150-450); Red Blood Count 4.84 10^6/uL (4.70-6.10); White Blood Count 7.3 10^3/uL (4.0-11.0)
[2025-07-12 10:32] LABS: Alanine Aminotransferase 35 U/L (16-63); Albumin Globulin Ratio 1.1; Albumin Level 3.5 g/dL (3.4-5.0); Alkaline Phosphatase 82 U/L (46-116); Anion Gap 12.6; Aspartate Amino Transferase 19 U/L (15-37); Blood Urea Nitrogen 19.0 mg/dL (7.0-18.0); Calcium 8.5 mg/dL (8.5-10.1); Carbon Dioxide 29.4 mmol/L (21.0-32.0); Chloride 105 mmol/L (98-107); Cholesterol 162 mg/dL (<=200); Estimated GFR (African America >60 (>=60 mL/min/1.73m^2); Estimated GFR (Non-African Ame >60 (>=60 mL/min/1.73m^2); Free T3 2.42 pg/mL (2.18-3.98); Globulin 3.3 g/dL; Glucose 129 mg/dL (74-106); HDL Cholesterol 39 mg/dL (40-60); Potassium 4.0 mmol/L (3.5-5.1); Sodium 143 mmol/L (136-145); Thyroid Stimulating Hormone 0.441 uIU/mL (0.358-3.740); Total Protein 6.8 g/dL (6.4-8.2); Triglycerides 87 mg/dL (<=150); Uric Acid 6.7 mg/dL (3.5-7.2); VLDL CHOLESTEROL 17.4 mg/dL
== END 2025-07-12 09:34 | disposition home or self-care (01) ==
PROVIDERS: PCP Family Medicine; Visit Provider Family Medicine
DX: Z00.00 Encounter for general adult medical examination without abnormal findings (principal); Z12.5 Encounter for screening for malignant neoplasm of prostate
CPT/HCPCS: 36415; 80053; 80061; 82306; 83036; 83525; 84436; 84443; 84481; 84550; 85025; G0103